=== PATIENT | male | born 1995 | race Caucasian/White ===

== ENCOUNTER 2020-06-17 08:39 | Emergency (ER) | payer OTHER ==
[~2020-06-17] VITALS: Ht 175.3 cm; Wt 104.3 kg
[~2020-06-17 08:39] MED LIST: BUSPIRONE HCL10 MG PO; CYMBALTA60 MG PO; DEPAKOTE 250MG250 M1 PO; SERTRALINE HCL50 MG PO; XANAX 0.5 MG0.5 MG PO; XANAX 1 MG TABLE1 MG PO
[2020-06-17] MEDS ORDERED: PREDNISONE 10 M10 M1 PO (09:15)
[2020-06-17] MEDS ORDERED: DIPHENHIST50 MG PO (09:15)
[2020-06-17 09:33] VITALS: BP 196/126
== END 2020-06-17 09:34 | disposition home or self-care (01) ==
LOC: M.ERS 08:39
DX: L25.9 Unspecified contact dermatitis, unspecified cause (principal); F17.210 Nicotine dependence, cigarettes, uncomplicated